=== PATIENT | male | born 1985 | race Caucasian/White ===

== ENCOUNTER 2017-03-22 21:25 | Emergency (ER) | payer SELFPAY ==
[~2017-03-22 21:25] MED LIST: GENTAMICIN 0.3% OPHTH SOL 1 DROP ONE; TETRACAINE HCL 0.5% OPHTH SOL 1 DROP ONE
[2017-03-22 21:50] VITALS: TEMP 98.2; O2SAT 98
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
[2017-03-22 22:19] VITALS: BP 169/88
== END 2017-03-22 22:19 | disposition home or self-care (01) ==
LOC: ER 21:25
DX: S05.02XA Injury of conjunctiva and corneal abrasion without foreign body, left eye, initial encounter (principal); X58.XXXA Exposure to other specified factors, initial encounter; Y93.89 Activity, other specified; Y92.9 Unspecified place or not applicable

== ENCOUNTER 2017-06-25 01:39 | Emergency (ER) | payer SELFPAY ==
[2017-06-25 02:03] VITALS: TEMP 98
[2017-06-25] MEDS: ONDANSETRON INJ 4 MG/2 ML VIAL IV ONE (02:41)
[2017-06-25] MEDS: fentaNYL CITRATE INJ 50 MCG/ML AMP IV ONE (02:41)
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
[2017-06-25 03:49] VITALS: O2SAT 96
[2017-06-25] MEDS ORDERED: CHLORHEXIDINE GLUCONATE 4 % 15 ML UD TOP ONE ×2 (04:05→04:24)
[2017-06-25] MEDS ORDERED: LIDOCAINE 1% 10 ML VIAL INJ ONE (04:15)
[2017-06-25 04:58] VITALS: BP 143/75
[2017-06-25] MEDS ORDERED: NEOMYCIN-BACITRACIN-POLYMYXIN 0.9 GM UD TOP ONE (05:28)
== END 2017-06-25 05:41 | disposition home or self-care (01) ==
LOC: ER 01:39
DX: S01.511A Laceration without foreign body of lip, initial encounter (principal); S01.81XA Laceration without foreign body of other part of head, initial encounter; S00.01XA Abrasion of scalp, initial encounter; Y08.89XA Assault by other specified means, initial encounter; Y92.9 Unspecified place or not applicable
CPT/HCPCS: 36415; 70450; 70486; 71260; 72125; 74177; 80053; 82150; 83690; 85025; J2405; J3010